=== PATIENT | female | born 2000 ===

== ENCOUNTER → 2020-03-09 | Outpatient (CLI) | payer OTHER | END | disposition home or self-care (01) | LOC: LAB SHORT 11:33 → LAB 11:33 | PROVIDERS: Nurse Practitioner Family | DX: Z12.4 Encounter for screening for malignant neoplasm of cervix (principal) | CPT/HCPCS: 88175 ==

== ENCOUNTER → 2020-04-01 | Outpatient (CLI) | payer OTHER | END | disposition home or self-care (01) | LOC: LAB SHORT 13:40 → LAB EV 13:40 | DX: B34.9 Viral infection, unspecified (principal); Z20.828 Contact with and (suspected) exposure to other viral communicable diseases | CPT/HCPCS: U0003 ==

== ENCOUNTER 2022-09-28 21:27 | Emergency (ER) | payer OTHER ==
[~2022-09-28] VITALS: Ht 170.2 cm; Wt 117.9 kg
[2022-09-28] MEDS ORDERED: DULOXETINE HCL60 M1 PO (22:03)
[2022-09-28] MEDS ORDERED: ONDA4ODT MM (22:03)
== END 2022-09-28 23:35 | disposition home or self-care (01) ==
LOC: ER 21:27
DX: E86.0 Dehydration (principal)
CPT/HCPCS: 99283; J7030